=== PATIENT | female | born 1995 | race African-American/Black ===

== ENCOUNTER 2019-12-20 02:49 | Emergency (ER) | payer MEDICAID, OTHER ==
[~2019-12-20] VITALS: Ht 165.1 cm; Wt 52.3 kg
[2019-12-20] MEDS ORDERED: HYDROCODONE/ACETAMINOPHEN 5-325 MG TABLET PO ONE (03:45)
[2019-12-20] MEDS ORDERED: ACETAMINOPHEN 500 MG TABLET PO ONE (03:45)
[2019-12-20 06:36] VITALS: BP 119/64
== END 2019-12-20 06:48 | disposition home or self-care (01) ==
LOC: EMS 02:49
DX: S20.212A Contusion of left front wall of thorax, initial encounter (principal); V49.9XXA Car occupant (driver) (passenger) injured in unspecified traffic accident, initial encounter; Y93.89 Activity, other specified; Y92.89 Other specified places as the place of occurrence of the external cause; Y99.8 Other external cause status
CPT/HCPCS: 93005; 71046; 71046-TC

== ENCOUNTER 2019-12-28 13:25 | Emergency (ER) | payer MEDICAID ==
[~2019-12-28] VITALS: Ht 162.6 cm; Wt 54.5 kg
[2019-12-28 15:39] LABS: BASOPHILS % (AUTO) 0.8 % (0.0-2.0); EOSINOPHILS % (AUTO) 1.8 % (1.0-6.0); HEMATOCRIT 40.7 % (36-46); HEMOGLOBIN 13.6 g/dL (12.0-16.0); LYMPHOCYTES # (AUTO) 2.1 K/uL (1.0-4.8); LYMPHOCYTES % (AUTO) 27.5 % (22.0-44.0); MEAN CORPUSCULAR HGB CONC 33.3 G/dL (31.0-37.0); MEAN CORPUSCULAR VOLUME 96 fL (80-100); MONOCYTES # (AUTO) 0.4 K/uL (0.1-1.0); MONOCYTES % (AUTO) 5.6 % (2.0-9.0); NEUTROPHILS # (AUTO) 4.8 K/uL (1.8-7.7); NEUTROPHILS % (AUTO) 64.3 % (40.0-70.0); PLATELET COUNT (AUTO) 339 K/uL (150-450); RED BLOOD CELL COUNT(AUTO) 4.24 MIL/uL (4.00-5.20); RED CELL DISTRIBUTION WIDTH 13.2 % (11.5-14.5)
[2019-12-28] MEDS ORDERED: CefTRIAXone SODIUM 1 GM/VIAL IM ONE (15:45)
[2019-12-28] MEDS ORDERED: AZITHROMYCIN 500 MG TABLET PO ONE (15:45)
[2019-12-28 15:47] LABS: ANION GAP 8 mmol/L (8-16); CALCIUM, TOTAL 9.8 mg/dL (8.8-10.5); CARBON DIOXIDE 27 mmol/L (22-29); CHLORIDE 102 mmol/L (98-107); CREATININE 0.88 mg/dL (0.60-1.30); GLOMERULAR FILTR. RATE CALC > 60 mL/min (>60); GLUCOSE,RANDOM 126 mg/dL (70-110); POTASSIUM 3.6 mmol/L (3.5-5.1); SODIUM SERUM 137 mmol/L (136-145); UREA NITROGEN, BLOOD 11 mg/dL (7-18)
[2019-12-28 15:58] LABS: HCG,QUANTITATIVE 1 mIU/mL (0-6)
[2019-12-28 17:10] VITALS: BP 119/75
[2019-12-29 06:29] LABS: HIV 1-2 SCREEN 4TH GEN W/RFLX Non Reactive (Non Reactive)
== END 2019-12-28 17:54 | disposition home or self-care (01) ==
LOC: EMS 13:26
DX: N92.1 Excessive and frequent menstruation with irregular cycle (principal); N76.0 Acute vaginitis
CPT/HCPCS: 36415; 80048; 84702; 85025; 87210; 87389; 87491; 87591; 96372; 99283; J0696

== ENCOUNTER 2020-04-30 20:40 | Emergency (ER) | payer MEDICAID ==
[~2020-04-30] VITALS: Ht 162.6 cm; Wt 52.3 kg
[2020-04-30 21:02] VITALS: BP 115/68
== END 2020-04-30 23:00 | disposition left against medical advice (07) ==
LOC: EMS 20:52
DX: R69 Illness, unspecified (principal)